=== PATIENT | female | born 1960 | race Two or more races ===

== ENCOUNTER 2017-11-20 07:05 | Day surgery (SDC) | payer OTHER ==
[~2017-11-20 07:05] MED LIST: FOLIC ACID1 MG PO; METHOTREXATE PO; MOTRIN PO; PLAQUENIL PO; PREDNISONE10 MG PO; [UNRECOGNIZED DRUG - OTHER] PO; [UNRECOGNIZED DRUG - OTHER] PO
[2017-11-20] MEDS ORDERED: PERCOCET 5-3251 EACH PO (11:22)
== END 2017-11-20 13:20 | disposition home or self-care (01) ==
LOC: CIR.AMB 07:05
DX: R15.9 Full incontinence of feces (principal)
CPT/HCPCS: 64581; C1778

== ENCOUNTER 2017-12-04 05:57 | Day surgery (SDC) | payer OTHER ==
[~2017-12-04 05:57] MED LIST changes: +PERCOCET 5-3251 EACH PO
[2017-12-04] MEDS ORDERED: ULTRACET PO (07:45)
[2017-12-04] MEDS ORDERED: KEFLEX500 MG PO (07:56)
== END 2017-12-04 09:35 | disposition home or self-care (01) ==
LOC: CIR.AMB 05:57
DX: R15.9 Full incontinence of feces (principal)
CPT/HCPCS: 64590; C1767

== ENCOUNTER 2022-06-03 14:56 | Day surgery (SDC) | payer OTHER ==
[~2022-06-03] VITALS: Ht 152.4 cm; Wt 52.2 kg
[~2022-06-03 14:56] MED LIST changes: +KEFLEX500 MG PO; +TRAM1TAB98 PO; +ULTRACET PO
== END 2022-06-03 16:25 | disposition home or self-care (01) ==
LOC: CIR.AMB 14:56
PROVIDERS: ATTEND Surgery
DX: R15.9 Full incontinence of feces (principal); I10 Essential (primary) hypertension; Z20.822 Contact with and (suspected) exposure to COVID-19; E11.649 Type 2 diabetes mellitus with hypoglycemia without coma
CPT/HCPCS: 64590; 95972; L8679